=== PATIENT | male | born 1945 | race Caucasian/White ===

== ENCOUNTER 2024-04-28 11:54 | Emergency (ER) | payer MEDICARE, SELFPAY ==
[2024-04-28 11:57] VITALS: BP 152/80; PULSE 59; RESP 14; O2SAT 96; BMI 24.5
--- NOTE | 2024-04-28 12:08 | ED.WOUNDLAC ---
HPI - Wound/Laceration <Mica Padilla PA-C - Last Filed: 04/28/24 15:14> General Chief Complaint: Wound/Laceration Stated Complaint: Fall, hand injury, blood thinners Time Seen by Provider: 04/28/24 12:07 Source: patient Mode of arrival: Ambulatory History of Present Illness HPI narrative: 79yo Left-handed M on blood thinners presents with his with concern for a laceration to his right palm/base of his pinkie finger. Patient and his state that he was stepping off of a curb to help her back out of a tight parking spot and slipped on the curb and fell forward catching himself with his right hand outstretched. States he landed with his hand hitting a rock and cut his hand open. They were able to control the bleeding with direct pressure. Did not hit his head lose consciousness or sustain any other injuries. He normally walks with a cane that he holds in his left hand. they deny any other complaints injuries or concerns. Related Data Allergies Allergy/AdvReac Type Severity Reaction Status Date / Time No Known Drug Allergies Allergy Verified 04/28/24 11:57 Review of Systems <Miac Padilla PA-C - Last Filed: 04/28/24 15:14> Review of Systems Narrative: See HPI Patient History <Mica Padilla PA-C - Last Filed: 04/28/24 15:14> Social History Smoking Status: Unknown if ever smoked Smoking Status: Unknown if ever smoked alcohol intake frequency: holidays/special occasions only Substance Use Type: does not use Exam <Mica Padilla PA-C - Last Filed: 04/28/24 15:14> Narrative Exam Narrative: GENERAL: [79] year old patient appears stated age. Well-developed patient, in mild distress. HEAD: Atraumatic. Normocephalic. EYES: Pupils equal round and reactive. Extraocular motions intact. No scleral icterus. No injection or drainage. ENT: Nose without bleeding, purulent drainage. Airway patent. NECK: Trachea midline. Non tender CARDIOVASCULAR: Regular rate and rhythm without murmurs, gallops, or rubs. RESPIRATORY: no increased work of breathing or respiratory distress EXTREMITIES: on the affected R hand there is a slightly irregular linear laceration into the fatty tissue running laterally at the base of the 5th digit/superior palm that is 3cm in length, it spares the webspace between 4th/5th digits. Strength/ROM the the 5th digit is intact and pain free, sensation intact. there is no bruising noted. No swelling noted. Cap refill less than 2 seconds, skin is pink. bleeding of the wound is controlled with direct pressure/bandage. No other edema or joint tenderness. NEURO: AOx3. SKIN: No rash or erythema of visible areas Initial Vital Signs Initial Vital Signs: Vital Signs Pulse Rate 59 L 04/28/24 11:57 Respiratory Rate 14 04/28/24 11:57 Blood Pressure 152/80 H 04/28/24 11:57 Pulse Oximetry 96 04/28/24 11:57 Oxygen Delivery Method Room Air 04/28/24 11:57 <Alejandra Lowry DO - Last Filed: 04/30/24 11:27> Initial Vital Signs Initial Vital Signs: Vital Signs Pulse Rate 59 L 04/28/24 11:57 Respiratory Rate 14 04/28/24 11:57 Blood Pressure 152/80 H 04/28/24 11:57 Pulse Oximetry 96 04/28/24 11:57 Oxygen Delivery Method Room Air 04/28/24 11:57 Procedures <MARY Kirkpatrick Last Filed: 04/28/24 15:14> Laceration Repair Laceration 1: Time of procedure: 12:45 Site: hand Side (If applicable): right Size (cm): 3 Description: linear, irregular and contaminated Depth: simple, single layer Local Anesthetic: lidocaine 1% and with epi Amount of anesthesia used (mL): 1.5 Pre-repair: wound explored, irrigated extensively, deep structures intact and cleansed with chlorhexadine Skin layer closed with: nylon Skin layer suture size: 5-0 Number of sutures: 8 Technique: simple, interrupted Course <MARY Kirkpatrick Last Filed: 04/28/24 15:14> Orders Ordered: Discontinued Medications Diphtheria/Tetanus/Acell Pertussis (Tet,Diph,Pertuss(Acell),Vac/Pf 0.5 Ml Syringe) 0.5 ml IM .ONCE ONE Stop: 04/28/24 12:08 Last Admin: 04/28/24 12:13 Dose: 0.5 ml Documented By: JEFF Lidocaine/Epinephrine (Lidocaine 1% W/Epi) 4 ml SUBCUT NOW ONE Stop: 04/28/24 12:18 Last Admin: 04/28/24 12:21 Dose: 4 ml Documented By: JEFF Vital Signs Vital signs: Vital Signs - 8 hr 04/28/24 11:57 04/28/24 13:31 Pulse Rate 59 L 57 L Respiratory Rate 14 15 Blood Pressure 152/80 H 148/80 H Pulse Oximetry 96 99 Oxygen Delivery Method Room Air Room Air <Alejandra Lowry DO - Last Filed: 04/30/24 11:27> Orders Ordered: Discontinued Medications Diphtheria/Tetanus/Acell Pertussis (Tet,Diph,Pertuss(Acell),Vac/Pf 0.5 Ml Syringe) 0.5 ml IM .ONCE ONE Stop: 04/28/24 12:08 Last Admin: 04/28/24 12:13 Dose: 0.5 ml Documented By: JEFF Lidocaine/Epinephrine (Lidocaine 1% W/Epi) 4 ml SUBCUT NOW ONE Stop: 04/28/24 12:18 Last Admin: 04/28/24 12:21 Dose: 4 ml Documented By: JEFF Vital Signs Vital signs: Vital Signs - 8 hr 04/28/24 11:57 04/28/24 13:31 Pulse Rate 59 L 57 L Respiratory Rate 14 15 Blood Pressure 152/80 H 148/80 H Pulse Oximetry 96 99 Oxygen Delivery Method Room Air Room Air MDM - Wound/Laceration <Mica Padilla PA-C - Last Filed: 04/28/24 15:14> Differential Diagnosis Differential diagnosis: Likely laceration and other (sprain/strain/fracture) Medical Records Medical records narrative: Imaging Data Extremity x-ray #1: My Impression: agree with Radiology interpretation Radiologist's Impression: [address] [address] XRay Report Signed Patient: Erlin Morocho MR#: [id number] : 1945 Acct:[id number] Age/Sex: 79 / M Date of Service: 04/28/24 Loc: ED Accession Number: [id number] Procedure: XR hand RT min 3V Ordering Provider: Mica Padilla PA-C PROCEDURE: XR HAND RT MIN 3V INDICATIONS: FOOSH; lac to base of 5th digit TECHNIQUE: 3 views of the hand(s) acquired. COMPARISON: None. FINDINGS: Bones: No fractures or dislocations. Carpal bones are normally aligned. No suspicious bony lesions. Soft tissues: No suspicious soft tissue calcifications. IMPRESSION: No acute bony abnormality. No foreign body seen. Dictated by: Farshad Mena M.D. on 04/28/2024 at 13:02 Approved by: Farshad Mena M.D. on 04/28/2024 at 13:02 [facility] Narrative Medical decision making narrative: This is a generally healthy 79-year-old male who is on blood thinners presenting with concern for a laceration to his right palm at the base of his right 5th digit. Sustained when he had a mechanical fall today after tripping stepping off of a curb and falling with his hand outstretched. Did not hit his head or lose consciousness, this was witnessed by his . Wound was cleaned and repaired today as above in procedures. He also received an updated Tdap. X-rays were obtained for further evaluation which show no abnormality. Area was bandaged with a nonstick dressing and wrap prior to discharge. Patient was advised to follow up in 7-10 days for suture removal, monitor for signs of infection. Return precautions provided, follow-up plan discussed, all questions answered. Return precautions provided, follow-up plan discussed, all questions answered Discharge Plan Departure Patient Disposition: Home Clinical Impression: Laceration Instructions: DI for Laceration Repair Activity Restrictions/Additional Instructions: *You have been diagnosed with [Laceration to your hand ] *What to do: *Please continue to take your regular medications as directed. [ ] New medication prescriptions sent to your pharmacy: [ ] [ ] New medication written as a paper prescription [X ] No new medications given *Please follow up with your primary care provider in 2-3 days, call for an appointment. Let them know you were seen in the Emergency Department and that we ask that you be seen in follow up. We will electronically transmit a record of today's note if your PCP is in our system. You came into the ER today after sustaining a laceration to her hand. We updated your tetanus shot today, we cleaned the area numbed it, washedIt out and placed stitches. The stitches do need to be removed in 7-10 days' time. We placed 8 stitches today. In the meantime keep the area clean you can use topical antibiotic ointment or Vaseline to promote healing. Monitor for signs of infection including increasing redness increasing pain or swelling or drainage. You can have your stitches removed at your primary care doctor's office, an urgent care or return to this emergency department. We also did x-rays of your hand today to make sure there is no bony involvement. Your function does seem to be intact, and I am not suspicious for tendon or ligament injury. However you may have some discomfort with movement and flexion over the next few days due to the injury you sustained an you could have some bruising pain or swelling develop. You can ice on and off for up to 10 minutes at a time if necessary, you also may want to try Tylenol for pain and keeping your hand elevated will be helpful for healing and for pain. *If you do not have a primary care provider please contact the [facility] Resource line at [phone]. They will ask some questions about your medical history and help get you set up with a doctor in the community. *Return to Emergency Department if you should have any new, worsening or concerning symptoms, such as [fever greater than 101 F, shaking chills, worsening pain, persistent vomiting or other bothersome symptoms] Referrals: Miscellaneous,Doctor, MD [Primary Care Provider] - Stand Alone Forms: Patient Portal/API ED Sign-out <Alejandra Lowry DO - Last Filed: 04/30/24 11:27> Cosign ED Attending Cas Attestation: I was available for consultation.
[2024-04-28] MEDS: TET,DIPH,PERTUSS(ACELL),VAC/PF 0.5 ML SYRINGE IM (12:13)
--- NOTE | 2024-04-28 12:20 | DI.RAD.S_ITS ---
PROCEDURE: XR HAND RT MIN 3V INDICATIONS: FOOSH; lac to base of 5th digit TECHNIQUE: 3 views of the hand(s) acquired. COMPARISON: None. FINDINGS: Bones: No fractures or dislocations. Carpal bones are normally aligned. No suspicious bony lesions. Soft tissues: No suspicious soft tissue calcifications. IMPRESSION: No acute bony abnormality. No foreign body seen. Dictated by: Farshad Mena M.D. on 04/28/2024 at 13:02 Approved by: Farshad Mena M.D. on 04/28/2024 at 13:02
[2024-04-28] MEDS: LIDOCAINE 1% W/EPI 4 ML SUBCUT (12:21)
[2024-04-28 13:31] VITALS: BP 148/80; PULSE 57; RESP 15; O2SAT 99
== END 2024-04-28 13:33 | disposition home or self-care (01) ==
PROVIDERS: Emergency Provider Student in an Organized Health Care Education/Training Program
DX: S61.411A Laceration without foreign body of right hand, initial encounter (principal); W01.119A Fall on same level from slipping, tripping and stumbling with subsequent striking against unspecified sharp object, initial encounter; Z23 Encounter for immunization
CPT/HCPCS: 12002; 73130; 90471; 99283; 90715